=== PATIENT | male | born 1990 | race Caucasian/White ===

== ENCOUNTER 2019-01-05 12:46 | Day surgery (SDC) | payer OTHER ==
[~2019-01-05] VITALS: Ht 170.2 cm; Wt 70.9 kg
[2019-01-05] MEDS ORDERED: K-TAB10 PO (13:07)
[2019-01-05] MEDS ORDERED: IMURAN 50MG TAB50 MG PO (13:07)
[2019-01-05 13:08] VITALS: BP 111/83; PULSE 98; TEMP 97.9
[2019-01-05 15:45] VITALS: BP 107/80; PULSE 96; TEMP 97.5
--- NOTE | 2019-01-05 15:45 | NUR ---
Patient arrives to [facility] via cart, accompanied by [facility] RN Trena. He ambulates with standby assist to chair in room. Monitoring applied - VSS and WNL on room air. Patient is drowsy, but oriented. His friend is brought to the bedside. Denies any pain or nausea. Offered and receives sprite and crackers to eat - tolerates well. Will continue to monitor.
[2019-01-05 16:00] VITALS: BP 113/91; PULSE 88
--- NOTE | 2019-01-05 16:00 | NUR ---
VSS and WNL on room air. Patient is alert and oriented; sitting up, talking with friend. Denies any pain, nausea, or need at this time.
[2019-01-05 16:15] VITALS: BP 120/80; PULSE 77
--- NOTE | 2019-01-05 16:15 | NUR ---
Patient resting comfortably in room, chatting with friend. He denies any pain or nausea. Offered and receives a muffin to eat. Will continue to monitor.
[2019-01-05 16:30] VITALS: BP 118/74
--- NOTE | 2019-01-05 16:34 | NUR ---
Dr. Calderón at the bedside.
--- NOTE | 2019-01-05 16:45 | NUR ---
Discharge criteria has been met. Discharge instructions discussed, denies any questions, and verbalizes understanding. PIV removed with catheter intact and hemostasis achieved. Patient changing to clothing independently.
--- NOTE | 2019-01-05 16:50 | NUR ---
Patient escorted to exit via wheelchair. Discharged to home with ride in private vehicle at 1650.
== END 2019-01-05 16:50 | disposition home or self-care (01) ==
LOC: SDCO 12:46
DX: K50.80 Crohn's disease of both small and large intestine without complications (principal); K29.30 Chronic superficial gastritis without bleeding; F17.210 Nicotine dependence, cigarettes, uncomplicated; Z79.899 Other long term (current) drug therapy
CPT/HCPCS: J2704; J7120

== ENCOUNTER 2019-01-05 23:27 | Emergency (ER) | payer OTHER ==
[~2019-01-05] VITALS: Ht 176 cm; Wt 71.9 kg
[~2019-01-05 23:27] MED LIST: IMURAN 50MG TAB50 MG PO; K-TAB10 PO
[2019-01-05 23:32] VITALS: TEMP 98
[2019-01-06 00:53] LABS: HEMOGLOBIN 10.2 g/dl (13.5-18.0); MEAN CELL VOLUME 71 fl (80.0-100.0); MEAN CORPUSCULAR HEMOGLOBIN 22 pg (27.0-31.0); MEAN CORPUSCULAR HGB CONC 31 g/dl (33.0-37.0); MEAN PLATELET VOLUME 8.9 fl (7.4-10.4); PLATELET COUNT 423 K/mm3 (130-400); RED BLOOD COUNT 4.63 M/mm3 (4.20-5.60); REDCELL DISTRIBUTION WIDTH-CV 19.8 % (11.5-14.5)
[2019-01-06 00:55] LABS: HEMATOCRIT 32.8 % (42.0-52.0)
[2019-01-06 01:17] LABS: ALBUMIN 3.6 gm/dL (3.5-5.0); BILIRUBIN,TOTAL 0.3 mg/dL (0.0-1.0); C-REACTIVE PROTEIN 0.6 mg/dL (0.0-0.9); CREATININE, serum 0.86 mg/dL (0.66-1.25); POTASSIUM 3.7 mmol/L (3.4-5.0); TOTAL PROTEIN 6.5 gm/dL (6.4-8.2)
[2019-01-06 01:18] LABS: ANISOCYTOSIS 2+; HYPOCHROMIA 2+; LYMPHOCYTE 12 % (20.0-51.0); NEUTROPHILS 73 % (42.0-75.2); OVALOCYTES 2+; POIKILOCYTOSIS 2+; SCHISTOCYTES 1+
[2019-01-06 01:19] LABS: PLATELET ESTIMATE NORMAL (NORMAL)
[2019-01-06 01:20] LABS: POLYCHROMASIA 1+
[2019-01-06 01:21] LABS: MICROCYTOSIS 1+
[2019-01-06 05:15] VITALS: BP 95/71; PULSE 88
[2019-01-07] MEDS ORDERED: PREDNISONE20 MG PO (04:30)
[2019-01-07] MEDS ORDERED: PHENERGAN 25 TA25 MG PO (05:54)
== END 2019-01-06 05:15 | disposition home or self-care (01) ==
LOC: COL.ER 23:27
PROVIDERS: Emergency Medicine
DX: R10.9 Unspecified abdominal pain (principal); K50.90 Crohn's disease, unspecified, without complications
CPT/HCPCS: J2270; J2405; J7030; Q9967

== ENCOUNTER 2019-01-07 01:13 | Emergency (ER) | payer OTHER ==
[~2019-01-07] VITALS: Ht 176 cm; Wt 70.9 kg
[2019-01-07 01:23] VITALS: TEMP 99
[2019-01-07 03:38] LABS: BASO % 0.5 % (0.0-2.0); EOS # 0.1 (0.0-0.7); EOS % 1.3 % (0-4.0); GRAN # 2.6 (1.4-6.5); GRAN % 69.5 % (42.2-75.2); LYMPH # 0.4 (1.2-3.4); LYMPH % 11.7 % (20.0-51.0); MEAN CELL VOLUME 72 fl (80.0-100.0); MEAN CORPUSCULAR HGB CONC 31 g/dl (33.0-37.0); MEAN PLATELET VOLUME 8.9 fl (7.4-10.4); MONO # 0.6 (0.1-0.6); MONO % 16.7 % (1.7-9.3); PLATELET COUNT 410 K/mm3 (130-400); RED BLOOD COUNT 4.39 M/mm3 (4.20-5.60); REDCELL DISTRIBUTION WIDTH-CV 19.7 % (11.5-14.5)
[2019-01-07 03:39] LABS: HEMATOCRIT 31.5 % (42.0-52.0); HEMOGLOBIN 9.6 g/dl (13.5-18.0); MEAN CORPUSCULAR HEMOGLOBIN 22 pg (27.0-31.0)
[2019-01-07 03:53] LABS: ALANINE AMINOTRANSFERASE 9 U/L (21-72); ALBUMIN 3.4 gm/dL (3.5-5.0); ALKALINE PHOSPHATASE 73 U/L (50-136); ANION GAP 9 mmol/L (7-16); AST,SGOT 17 U/L (15-37); BILIRUBIN,TOTAL 0.3 mg/dL (0.0-1.0); BLOOD UREA NITROGEN 16 mg/dL (9-20); CALCIUM 8.7 mg/dL (8.4-10.2); CARBON DIOXIDE 27 mmol/L (22-30); CHLORIDE 101 mmol/L (98-107); CREATININE, serum 0.71 mg/dL (0.66-1.25); GLUCOSE 103 mg/dL (74-106); LIPASE 339 U/L (23-300); POTASSIUM 3.6 mmol/L (3.4-5.0); SODIUM 137 mmol/L (137-145); TOTAL PROTEIN 6.2 gm/dL (6.4-8.2)
[2019-01-07 03:54] LABS: C-REACTIVE PROTEIN < 0.5 mg/dL (0.0-0.9)
[2019-01-07] MEDS ORDERED: PREDNISONE20 MG PO (04:30)
[2019-01-07] MEDS ORDERED: PHENERGAN 25 TA25 MG PO (05:54)
[2019-01-07 06:00] VITALS: BP 114/64; PULSE 76
== END 2019-01-07 06:00 | disposition home or self-care (01) ==
LOC: COL.ER 01:13
PROVIDERS: Emergency Medicine
DX: R10.9 Unspecified abdominal pain (principal); K50.90 Crohn's disease, unspecified, without complications
CPT/HCPCS: J2270; J2550; J2930; J7030

== ENCOUNTER → 2019-01-12 | Outpatient (CLI) | payer OTHER ==
[~2019-01-12] MED LIST changes: +PHENERGAN 25 TA25 MG PO; +PREDNISONE20 MG PO
== END ==
LOC: COL.RAD 14:17
DX: K50.90 Crohn's disease, unspecified, without complications (principal); D64.9 Anemia, unspecified